=== PATIENT | male | born 1960 | race Caucasian/White ===

== ENCOUNTER 2024-10-09 | Emergency (ER) | payer OTHER ==
[2024-10-09 00:14] VITALS: BP 136/79; PULSE 99
[2024-10-09] MEDS: Cephalexin 500 MG Cap PO ONE (00:18)
[2024-10-09] MEDS: Sulfamethoxazole/Trimethoprim 800-160 MG Tab PO ONE (00:18)
== END 2024-10-09 00:33 | disposition home or self-care (01) ==
LOC: SUPCPDRO → VM.ED
DX: L02.831 Carbuncle of head [any part, except face] (principal)
CPT/HCPCS: 99281; 99283; A9270-GY